=== PATIENT | female | born 2000 | race Caucasian/White ===

== ENCOUNTER → 2022-12-28 | Outpatient (CLI) | payer OTHER, BC, SELFPAY ==
--- NOTE | 2022-12-28 08:06 | MRI_ITS ---
EXAM: MR RIGHT UPPER EXTREMITY WITHOUT INTRAVENOUS CONTRAST, SHOULDER CLINICAL INDICATION: right shoulder injury TECHNIQUE: Multiplanar and multisequence MR images of the right shoulder without intravenous contrast. COMPARISON: No relevant prior studies available. FINDINGS: TENDONS: SUPRASPINATUS: Unremarkable. No supraspinatus tendon tear. INFRASPINATUS: Unremarkable. Intact. SUBSCAPULARIS: Unremarkable. Intact. TERES MINOR: Unremarkable. Intact. BICEPS BRACHII, LONG HEAD: Long head of the biceps tendon is normal in position and appearance. The extra-articular biceps tendon is in the bicipital groove. LIGAMENTS: GLENOHUMERAL: Unremarkable. Intact. MUSCLES: Muscles are normal. No rotator cuff muscle atrophy. FLUID: Unremarkable. No significant fluid in the subacromial/subdeltoid bursa. No significant glenohumeral joint effusion. CARTILAGE: Unremarkable. Articular cartilage intact. GLENOID LABRUM: Unremarkable. No labral tears. BONES/JOINTS: Type II acromion with curved undersurface. No subacromial enthesophyte. No os acromiale. No coracoacromial ligament thickening. Rotator interval is normal. Mild to moderate degenerative changes of the acromioclavicular joint. OTHER SOFT TISSUES: Unremarkable. No rotator interval edema. MRI/Upper Ext Joint Only(Routine) IMPRESSION: No significant internal derangement. Electronically Signed: Dave Weems MD at 21:26 EDT ,
== END | disposition home or self-care (01) ==
PROVIDERS: Referring Provider Physician Assistant; Visit Provider Physician Assistant
DX: S46.911A Strain of unspecified muscle, fascia and tendon at shoulder and upper arm level, right arm, initial encounter (principal)
CPT/HCPCS: 73221

== ENCOUNTER 2023-02-07 12:00 | Outpatient (RCR) | payer OTHER, SELFPAY ==
--- NOTE | 2022-11-24 14:14 | HP.PTEVAL ---
Patient's Visit Information JULIANNE MONTES is a 22 year old F referred to Physical Therapy by MOISÉS Bravo with a diagnosis of R shoulder strain , cervical strain. Date of Evaluation: 11/24/22 Physical Therapist: Darnell Nicole DPT, OCS, CSCS - Visit Plan Frequency: 2-3x /Week Duration: 4-6 Weeks Plan: 2-3x/week for 4-6 weeks around busy work and school schedule. 1. US nonthermal to r supraspinatus insertion. 2. manual g-h mobs grade 1-2 for pain and ROM neck extension adn shoulder. 3. RC and postural strength to tolerance. 4. TENS with ice if needed. - Subjective Injured R shoulder one week ago. Was lifting steel and picking it up OH and it popped and tried to work through it and it popped. Told supervisor [employer]eh[employer] and sent to urgent care the next day. 8/10 the next day with certain movements, 5/10 relaxed. Currently 5/10 at rest on lateral shoulder, worse with lifting it and reaching under computer at home. Sleep is problem if she lies on it. 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 Also not lifting anything over 10# currently. Basic ADLs are getting done mostly normal but it hurts. Hobbies include: golf, frisbee and is R handed and is avoiding. Exercises: normal. treatment: not yet. No previous shoulder problems. - Pain R shoulder Pain Intensity (Out of 10): 5 Pain Intensity Range: 5, 8 - Objective Posture is forward head and protracted scap slightly, protective of right UE slightly. tender to palpation R UT, and supraspinatus tendon into biceps tendon R shoulder maximally. L UE AROM WFL and easy. R shoulder AROM elevation adn abduction full but painful arc and slow at end range , er adn IR are full but painful at end range. elbow and wrist AROM WFL, scap ROM WFL B. cervical aROM: ext 55 slight L deviation, rotations 65 and painful to R, SB not painful. - c/s compression test. - drop arm. - ext rtation lag test. - sulcus test. reflexes 2/3 bi and tri. sensation UE WNL to gross light touch. strengthwrist and elbow 4/5, slight pain elbow flexion in anterior shoulder. resisted r shoulder er and flex and abduction adn empty can all max tender and 4-/5, IR 4 and not as painful - Balance/Special Test Scores Quick DASH Score: 54.5450 - Goals Goal 1:: Painfree at rest. Goal Time Frame: 2 Weeks Goal 2:: Full aROM without increased pain in neck and R shoulder Goal Time Frame: 4-6 Weeks Goal 3:: i appropriate management including strength to avoid future problems Goal Time Frame: 4-6 Weeks Goal 4:: Dress and housework without pain Goal Time Frame: 4-6 Weeks Goal 5:: Plan to return to full duty at work Goal Time Frame: 4-6 Weeks Goal 6:: 15 or less quickdash score Goal Time Frame: 4-6 Weeks - Rehabilitation Potential Physical Therapy Diagnosis: Likely R RC strain with pain and limited mobility. Rehabilitation Potential: Good - Anticipated Interventions Patient/Client Instruction: Educate patient on: Condition, Plan of Care For the Purpose of:: To decrease pain, To increase ROM, To improve nutrient delivery to tissue, To improve muscle performance and motor function, To increase tolerance to activity/condition/position, To improve ability of physical actions for home/community/work/leisure Therapeutic Exercise to Include: Strength training, Postural training, Flexibilty training, Passive ROM, Active ROM, Scapular Strength/Stabilization For the Purpose of:: To decrease pain, To increase ROM, To improve nutrient delivery to tissue, To increase oxygenation perfusion, To improve muscle performance and motor function, To increase tolerance to activity/condition/position, To improve ability of physical actions for home/community/work/leisure Manual Therapy Techniques to Include: Mobilization, Passive ROM, Soft tissue mobilization For the Purpose of:: To decrease pain, To decrease swelling/inflammation, To increase ROM, To improve nutrient delivery to tissue TENS: Yes Cryotherapy (ice pack, ice massage): Yes Ultrasound (thermal/non thermal): Yes For the Purpose of:: To decrease pain, To decrease swelling/inflammation, To improve nutrient delivery to tissue, To increase oxygenation perfusion Thank you for the opportunity to evaluate your patient. For Medicare and Medicare HMO plans, please review the plan of care and approve it. It will need to be FAXED BACK to us at [phone] for Medicare purposes. For Medicare only, by signing this I certify the plan of care. Please let me know if there are questions or concerns regarding this plan of care. Physician Signature: Date:
--- NOTE | 2023-01-08 10:46 | HP.PTREVAL ---
MOISÉS Bravo, It has been my pleasure to treat JULIANNE MONTES over the last 12 visits for R shoulder strain , cervical strain. Please see the progress note below for an update on the physical therapy plan of care! Subjective: Will get injection today which was approved for 1 oclock. Pain overall no better. 4/10 at rest, lifting 7/10. Sleep ios not an issue on muscle relaxer. 45% better overall with less neck and arm pain more focal to shoulder. Working light duty, no lifting and everything is below the waste. Sometimes worse after work. Objective/Function: Full aROM but slow R OH and behind back. + HK. + neer. strength is 4-/5 with some increased pain with er, empty can and abduction. patient is slowly improving objectively but subjective complaints are not improving. will have injection today and then resume strengthening therpapy toward same goals for 4 weeks with fair prognosis if injection is helpful. Plan Plan: 2-3x/week for 4 weeks to strength scap, RC, shoulders and progress funciton for RTW full duty to tolerance based on results of injection 01/08 Balance/Gait/Functional tests - Balance/Special Test Scores Quick DASH Score: 59.0900 Goals Goal 1:: Painfree at rest. Goal Time Frame: 2 Weeks Goal Progress: Not Progressing Goal 2:: Full aROM without increased pain in neck and R shoulder Goal Time Frame: 4-6 Weeks Goal Progress: Progressing Goal 3:: i appropriate management including strength to avoid future problems Goal Time Frame: 4-6 Weeks Goal Progress: pendulum and PROM Goal 4:: Dress and housework without pain Goal Time Frame: 4-6 Weeks Goal Progress: Not Progressing Goal 5:: Plan to return to full duty at work Goal Time Frame: 4-6 Weeks Goal Progress: still light Goal 6:: 15 or less quickdash score Goal Time Frame: 4-6 Weeks Anticipated Interventions Patient/Client Instruction: Educate patient on: Condition, Plan of Care For the Purpose of:: To decrease pain, To increase ROM, To improve nutrient delivery to tissue, To improve muscle performance and motor function, To increase tolerance to activity/condition/position, To improve ability of physical actions for home/community/work/leisure Therapeutic Exercise to Include: Strength training, Postural training, Flexibilty training, Passive ROM, Active ROM, Scapular Strength/Stabilization For the Purpose of:: To decrease pain, To increase ROM, To improve nutrient delivery to tissue, To increase oxygenation perfusion, To improve muscle performance and motor function, To increase tolerance to activity/condition/position, To improve ability of physical actions for home/community/work/leisure Manual Therapy Techniques to Include: Mobilization, Passive ROM, Soft tissue mobilization For the Purpose of:: To decrease pain, To decrease swelling/inflammation, To increase ROM, To improve nutrient delivery to tissue TENS: Yes Cryotherapy (ice pack, ice massage): Yes Ultrasound (thermal/non thermal): Yes For the Purpose of:: To decrease pain, To decrease swelling/inflammation, To improve nutrient delivery to tissue, To increase oxygenation perfusion Please do not hesitate to contact me at [phone] by phone or if you have questions or concerns regarding this new plan of care! Sincerely, Darnell Nicole, DPT, OCS, CSCS
--- NOTE | 2023-01-25 11:45 | HP.PTREVAL ---
MOISÉS Bravo, It has been my pleasure to treat JULIANNE MONTES over the last 13 visits for R shoulder strain , cervical strain. Please see the progress note below for an update on the physical therapy plan of care! Subjective: Had injection from Ortho 01/08. 70% better with injection. Pain is now intermittent 2/10 and worse with elevating arm overhead. Tries to avoid at work. Gets help at work adn is on light duty limiting lifting to 10# and certain areas avoided for OH. Working on band ex YTB 2x10 phase 3. No pain. Home activities pretty normal. Objective/Function: Doing well with much less pain,. AROM 0-148 B$ stretching in elevationa dn then 155. rotations IR and ER are symmetrical and without pain. Strength is 4+ bi and tri, 4- flexion and abduction with slight pain and 4 IR and 4- ER with slight pain R side. Goals ither met or appropriate for the next 3-4 weeks. Fair prognosis. Plan Plan: 3x/week for 3-4 weeks for. 1. strengthening posture and Rc and shoulder muscles.(UBE and gym) may progress to GTB phase 3 at home when OTB is easy. ensure ROM flex/abduction improving. ice as needed. Balance/Gait/Functional tests - Balance/Special Test Scores Quick DASH Score: 59.0900 Goals Goal 1:: Painfree at rest. Goal Time Frame: 2 Weeks Goal Progress: Goal Met Goal 2:: Full aROM without increased pain in neck and R shoulder Goal Time Frame: 4-6 Weeks Goal Progress: Progressing Goal 3:: i appropriate management including strength to avoid future problems Goal Time Frame: 4-6 Weeks Goal Progress: Progressing Goal 4:: Dress and housework without pain Goal Time Frame: 4-6 Weeks Goal Progress: Goal Met Goal 5:: Plan to return to full duty at work Goal Time Frame: 4-6 Weeks Goal Progress: appropriate Goal 6:: 15 or less quickdash score Goal Time Frame: 4-6 Weeks Anticipated Interventions Patient/Client Instruction: Educate patient on: Condition, Plan of Care For the Purpose of:: To decrease pain, To increase ROM, To improve nutrient delivery to tissue, To improve muscle performance and motor function, To increase tolerance to activity/condition/position, To improve ability of physical actions for home/community/work/leisure Therapeutic Exercise to Include: Strength training, Postural training, Flexibilty training, Passive ROM, Active ROM, Scapular Strength/Stabilization For the Purpose of:: To decrease pain, To increase ROM, To improve nutrient delivery to tissue, To increase oxygenation perfusion, To improve muscle performance and motor function, To increase tolerance to activity/condition/position, To improve ability of physical actions for home/community/work/leisure Manual Therapy Techniques to Include: Mobilization, Passive ROM, Soft tissue mobilization For the Purpose of:: To decrease pain, To decrease swelling/inflammation, To increase ROM, To improve nutrient delivery to tissue TENS: Yes Cryotherapy (ice pack, ice massage): Yes Ultrasound (thermal/non thermal): Yes For the Purpose of:: To decrease pain, To decrease swelling/inflammation, To improve nutrient delivery to tissue, To increase oxygenation perfusion Please do not hesitate to contact me at [phone] by phone or if you have questions or concerns regarding this new plan of care! Sincerely, Darnell Nicole, DPT, OCS, CSCS
--- NOTE | 2023-04-06 13:40 | HP.PT.NRP ---
Patient Information Patient Information: JULIANNE MONTES was seen in my office for initial evaluation on 11/24/22. The following Plan of Care was established for this patient: POC Established Initial Frequency: 2-3x /Week Initial Duration: 4-6 Weeks Anticipated Interventions Patient/Client Instruction: Educate patient on: Condition and Plan of Care For the Purpose of:: To decrease pain, To increase ROM, To improve nutrient delivery to tissue, To improve muscle performance and motor function, To increase tolerance to activity/condition/position and To improve ability of physical actions for home/community/work/leisure Therapeutic Exercise to Include: Strength training, Postural training, Flexibilty training, Passive ROM, Active ROM and Scapular Strength/Stabilization For the Purpose of:: To decrease pain, To increase ROM, To improve nutrient delivery to tissue, To increase oxygenation perfusion, To improve muscle performance and motor function, To increase tolerance to activity/condition/position and To improve ability of physical actions for home/community/work/leisure Manual Therapy Techniques to Include: Mobilization, Passive ROM and Soft tissue mobilization For the Purpose of:: To decrease pain, To decrease swelling/inflammation, To increase ROM and To improve nutrient delivery to tissue TENS: Yes Cryotherapy (ice pack, ice massage): Yes Ultrasound (thermal/non thermal): Yes For the Purpose of:: To decrease pain, To decrease swelling/inflammation, To improve nutrient delivery to tissue and To increase oxygenation perfusion Last Seen Last Seen: This patient was last seen in our office 02/07/23. Pertinent comments regarding their Physical therapy will appear below: Pt seen for 18 visits and was doing well and in the middle of POC. She did not attend any further visits. her doctor note stated she was doing well at the beginning of February and released to full wor without any pain. Therefore, at this time, I will discontinue her from PT due to nonattendance. At this point I will be discontinuing this patient from physical therapy. I would be happy to see this patient again in the future if found appropriate by the physician. Thank you! Darnell Nicole, DPT, OCS, CSCS Balance/Gait/Functional tests Balance/Special Test Scores Quick DASH Score: 59.0900
== END 2023-02-07 19:00 | disposition home or self-care (01) ==
LOC: PT 12:00
PROVIDERS: Referring Provider Physician Assistant; Visit Provider Physician Assistant
DX: S16.1XXD Strain of muscle, fascia and tendon at neck level, subsequent encounter (principal); S46.911D Strain of unspecified muscle, fascia and tendon at shoulder and upper arm level, right arm, subsequent encounter
CPT/HCPCS: 97014; 97035; 97110; 97140; 97161; 97530; G0283